=== PATIENT | female | born 1965 | race Caucasian/White ===

== ENCOUNTER 2017-11-09 22:13 | Emergency (ER) | payer OTHER ==
[~2017-11-09] VITALS: Ht 154.9 cm; Wt 65.8 kg
[~2017-11-09 22:13] MED LIST: IBUPROFEN 600600 M1 PO
[2017-11-09] MEDS ORDERED: HYDROXYZINE HCL25 M1 (23:00)
[2017-11-09] MEDS ORDERED: ABILIFY10 MG PO (23:01)
[2017-11-09] MEDS ORDERED: NEURONTIN 300300 M1 PO (23:01)
[2017-11-09] MEDS ORDERED: BENADRYL25 MG (23:02)
[2017-11-09] MEDS ORDERED: FLONASE 0.05%50 MCG NASAL (23:17)
[2017-11-09] MEDS ORDERED: IBUPROFEN 800800 MG PO (23:17)
== END 2017-11-09 23:43 | disposition home or self-care (01) ==
LOC: ER 22:13
DX: J30.9 Allergic rhinitis, unspecified (principal); F31.9 Bipolar disorder, unspecified; Z90.710 Acquired absence of both cervix and uterus; Z88.0 Allergy status to penicillin